=== PATIENT | female | born 1930 | race Caucasian/White ===

== ENCOUNTER 2018-03-22 07:27 | Day surgery (SDC) | payer MEDICARE ==
[~2018-03-22] VITALS: Ht 162.6 cm; Wt 73.5 kg
[~2018-03-22 07:27] MED LIST: ASCO500; ASPI325 PO; ASPI81EC PO; BACITO TP; CYAN100 PO; Coenzyme Q10100 M1 PO; DIAZ2 PO; ERGO400 PO; FLAX PO; GABA100 PO; Garlic500 MG PO; HYDACE5 PO; HYDCHL12.5; Hair, Skin & N1 EACH PO; LOSA25; METO25ER PO; METO50; MULVITMIND PO; NAPR500 PO; Red Yeast Rice600 MG PO; TUMERSAID TABL1 EACH PO; VITAMIN D32000 UNIT PO; [UNRECOGNIZED DRUG - REMARK]
== END 2018-03-22 09:34 | disposition home or self-care (01) ==
LOC: ORSCSDS 07:27
PROVIDERS: Ophthalmology
PROC: 08RK3JZ Replacement of Left Lens with Synthetic Substitute, Percutaneous Approach (ICD-10-PCS; principal; 2018-03-22 09:00)
DX: H25.12 Age-related nuclear cataract, left eye (principal); I10 Essential (primary) hypertension; K21.9 Gastro-esophageal reflux disease without esophagitis; E78.5 Hyperlipidemia, unspecified; I48.91 Unspecified atrial fibrillation; Z79.82 Long term (current) use of aspirin; Z79.899 Other long term (current) drug therapy
CPT/HCPCS: J2001; J2250; J3301; J7120; V2632

== ENCOUNTER 2018-05-05 21:22 | Observation (INO) | payer MEDICARE ==
[~2018-05-05] VITALS: Ht 162.6 cm; Wt 72.1 kg
[~2018-05-05 21:22] MED LIST changes: -METO50; +METO50 PO
[2018-05-05 23:36] LABS: BASOPHILS ABSOLUTE AUTO 0.01 K/mm3 (0.00-0.23); BASOPHILS PERCENT AUTO 0 % (0-2); EOSINOPHILS ABSOLUTE AUTO 0.64 K/mm3 (0.00-0.68); EOSINOPHILS PERCENT AUTO 6 % (0-6); Hematocrit 36.3 % (33.0-51.0); IMMATURE GRAN ABSOLUTE AUTO 0.05 K/mm3 (0.00-0.10); IMMATURE GRAN PERCENT AUTO 0 % (0-1); LYMPHOCYTES ABSOLUTE AUTO 1.11 K/mm3 (0.84-5.20); LYMPHOCYTES PERCENT AUTO 10 % (21-46); MONOCYTES ABSOLUTE AUTO 0.63 K/mm3 (0.16-1.47); MONOCYTES PERCENT AUTO 6 % (4-13); Mean Corpuscular HGB 30.3 pg (26.0-34.0); Mean Corpuscular HGB Conc 33.1 g/dL (31.5-36.5); Mean Corpuscular Volume 92 fL (80-100); Mean Platelet Volume 10.4 fL (9.1-12.4); NEUTROPHILS ABSOLUTE AUTO 9.11 K/mm3 (1.96-9.15); NEUTROPHILS PERCENT AUTO 79 % (41-73); Platelet Count 191 K/mm3 (150-400); RDW Coefficient Variation 13.2 % (11.7-14.2); RDW Standard Deviation 44.9 fL (35.1-46.3); Red Blood Cell Count 3.96 M/mm3 (3.80-5.20); White Blood Cell Count 11.55 K/mm3 (4.00-11.30)
[2018-05-05 23:54] LABS: Albumin, Blood 3.3 g/dL (3.4-5.0); Bilirubin, Total 0.3 mg/dL (0.1-1.0); Bun/Creatinine Ratio 25.2 (12.0-20.0); Calcium, Blood 9.9 mg/dL (8.5-10.1); Creatinine, Blood 2.06 mg/dL (0.40-1.00); Globulin, Blood 3.4 g/dL (2.2-4.0); Potassium, Blood 4.5 mmol/L (3.5-5.5); Total Protein, Blood 6.7 g/dL (6.4-8.2)
[2018-05-06 00:18] LABS: Source, Urine Clean Catch
[2018-05-06 00:23] LABS: Bilirubin, Urine Neg (Neg); Blood, Urine 5+ (Neg); Glucose Qualitative, Urine Neg (Neg); Ketones, Urine Neg (Neg); Leukocyte Esterase, Urine 3+ (Neg); Nitrite, Urine Neg (Neg); Protein, Urine 3+ (Neg); Specific Gravity, Urine 1.015 (1.003-1.022); Urobilinogen, Urine NORM (Normal)
[2018-05-06 00:25] LABS: Appearance, Urine Turbid (Clear); Color, Urine Yellow (P-Yellow)
[2018-05-06 00:30] LABS: Bacteria Mod /hpf; Red Blood Cells, Urine 0-2 /hpf (0-2); Squamous Epithelial Cells Rare /hpf (Few); White Blood Cells, Urine TNTC /hpf (0-5)
[2018-05-06 05:19] LABS: Hematocrit 39.4 % (33.0-51.0); Hemoglobin 12.5 g/dL (11.5-16.0); Mean Corpuscular HGB 29.6 pg (26.0-34.0); Mean Corpuscular HGB Conc 31.7 g/dL (31.5-36.5); Mean Corpuscular Volume 93 fL (80-100); Mean Platelet Volume 10.2 fL (9.1-12.4); Platelet Count 179 K/mm3 (150-400); RDW Coefficient Variation 13.3 % (11.7-14.2); RDW Standard Deviation 45.3 fL (35.1-46.3); Red Blood Cell Count 4.23 M/mm3 (3.80-5.20); White Blood Cell Count 10.67 K/mm3 (4.00-11.30)
[2018-05-06 05:48] LABS: Albumin, Blood 3.3 g/dL (3.4-5.0); Albumin/Globulin Ratio 0.9 (0.8-1.8); Bilirubin, Total 0.4 mg/dL (0.1-1.0); Bun/Creatinine Ratio 29.2 (12.0-20.0); Calcium, Blood 10.1 mg/dL (8.5-10.1); Creatinine, Blood 1.71 mg/dL (0.40-1.00); Globulin, Blood 3.6 g/dL (2.2-4.0); Potassium, Blood 4.2 mmol/L (3.5-5.5); Total Protein, Blood 6.9 g/dL (6.4-8.2)
--- NOTE | 2018-05-06 07:38 | NUR ---
SHIFT SUMMARY PT ARRIVED TO FLOOR IN NO DISTRESS. PT IS URINATING FREQUENTLY. PT IS ABLE TO USE BSC WITH HELP. PT HAS SLEPT SOME AFTER ARRIVING. PT WAS FOUND TO HAVE A ELEVATED, IRREGULAR HRT RATE. PROVIDER WAS NOTIFIED. PT DENIES ANY SOB OR CX PAIN. CALL LIGHT IN REACH.
--- NOTE | 2018-05-06 08:41 | NUR ---
NOTIFIED DR. GAMEZ PT WAS TO HAVE IV LOPRESSOR THIS AM DUE TO SHOW DOG TRAINER REPORTING PT BEING IN AFIB AT 130-[address]. [address] GAMEZ PT DID NOT GET IV LOPRESSOR DUE TO HR 79 AND BP 99/[address] GAMEZ TELE CALLED AND REPORTS PT AFIB AT 145-[address]. [address] GAMEZ PT'S BP RECHECKED AND IT IS 97/53. DR. GAMEZ REPORTS SHE IS GOING TO TRANSFER PT TO PCU AND PUT ORDERS IN. NO NEW ORDERS AT THIS TIME.
--- NOTE | 2018-05-06 10:45 | NUR ---
ASSUMED CARE OF PT FROM MEDICAL FLOOR RN. HR AFIB WITH A RATE IN THE 140'S. PT ABLE TO AMBULATE TO BED FROM WHEELCHAIR WITH 2 PERSON ASSIST. PT ORIENTED TO UNIT. BP 107/71. ORAL METOPROLOL THAT WAS HELD THIS AM GIVEN. WILL CONTINUE TO MONITOR CLOSELY.
[2018-05-06 10:51] LABS: International Normalized Ratio 1.04
--- NOTE | 2018-05-06 11:15 | NUR ---
HR CONTINUES TO SUSTAIN 130'S. DR GAMEZ NOTIFIED AND NEW ORDERS FOR AMIODERONE.
--- NOTE | 2018-05-06 13:15 | NUR ---
PT HAS PAUSE SEE RHYTHM STRIP IN CHART. AMIODERONE HELD. DR GAMEZ NOTIFIED. NEW ORDERS TO HOLD AMIODERONE UNLESS HR SUSTAINS ABOVE 130'S. HR IN THE 110'S AFIB. PT ASYMPTOMATIC DURING PAUSE. WILL CONTINUE TO MONITOR CLOSELY.
--- NOTE | 2018-05-06 15:04 | NUR ---
PT HAS TWO PAUSES WITH THE LONGEST BEING 3.38 SECONDS. SEE RHYTHM STRIPS IN CHART. PT ASYMPTOMATIC. VITAL SIGNS CHECKED AND STABLE. DR. GAMEZ NOTIFIED. AT 1446 PT CONVERTS TO SINUS RHYTHM. RATE IS IN THE 60-70s. WILL CONTINUE TO MONITOR.
--- NOTE | 2018-05-06 18:14 | NUR ---
SHIFT SUMMARY PT ALERT AND ORIENTED. VS STABLE AT THIS TIME. HR HAS BEEN IN THE 60'S SINCE CONVERTING TO NSR. BP STABLE. PT DENIES FEELING DIZZY OR SOB. PT ABLE TO TRANSFER TO BS WITH FWW AND ASSISTANCE. NO OTHER CHANGES AT THIS TIME. WILL CONTINUE TO MONITOR AND REPORT TO ONCOMING RN. CALL LIGHT IN REACH.
--- NOTE | 2018-05-07 07:26 | NUR ---
SHIFT SUMMARY PATIENT PLEASENT AND COOPERATIVE THROUGHOUT THE NIGHT. PATIENT APPEARED TO SLEEP WELL LAST NIGHT. PATIENT UP TO THE BSC SEVERAL TIMES WITH THE FWW AND ONE ASSIST. PATIENT REMAINED IN SINUS RHYTHM THROUGHOUT THE NIGHT PER [employer]AR[employer]ER OPERATOR REPORT. VITAL SIGNS CHARTED. REPORT GIVEN TO ONCOMING RN.
[2018-05-07 10:20] LABS: Anion Gap 10 mmol/L (6-16); Blood Urea Nitrogen 29 mg/dL (8-24); Bun/Creatinine Ratio 38.8 (12.0-20.0); CO2, Blood 22 mmol/L (21-32); Calcium, Blood 9.6 mg/dL (8.5-10.1); Chloride, Blood 109 mmol/L (98-108); Creatinine, Blood 0.75 mg/dL (0.40-1.00); Glomerular Filtration Rate >60 (60-); Glucose, Blood 135 mg/dL (70-99); Potassium, Blood 3.8 mmol/L (3.5-5.5); Sodium, Blood 141 mmol/L (136-145)
[2018-05-07] MEDS ORDERED: CEFD300 PO (15:35)
[2018-05-07] MEDS ORDERED: Lopressor 25 mg25 MG PO (15:39)
--- NOTE | 2018-05-07 18:40 | NUR ---
SHIFT SUMMARY PT ALERT AND ORIENTD. VS STABLE. PT ABLE TO WORK WITH PHYSICAL THERAPY TODAY. ORDERS FOR DISCHARGE HAVE BEEN PLACED. DISCHARGE INSTRUCTIONS PROVIDED TO PT AND FAMILY WITH CHANGES IN MEDICATIONS AND PLAN OF CARE WITH HOME HEALTH. NIGHT MEDICATIONS PROVIDED EARLY BECAUSE PHARMACY IS NOT OPEN UNTIL TOMORROW FOR NEW PRESCRIPTIONS TO BE PICKED UP. ALL QUESTIONS ANSWERED. IV REMOVED AND INTACT. PT GETTING DRESSED AND AWAITING FAMILY MEMBER TO PICK HER UP. WILL CONTINUE TO MONITOR AND ANSWER QUESTIONS.
== END 2018-05-07 19:16 | disposition home or self-care (01) ==
LOC: ER 21:22 → MEDS 21:23 → ER 05-06 02:41 → PCU 05-06 02:41 → MEDS 05-06 02:41 → PCU 05-06 03:24 → MEDS 05-06 03:53 → PCU 05-06 10:22
PROVIDERS: Emergency Medicine; Hospitalist; ADMIT Internal Medicine
DX: I48.91 Unspecified atrial fibrillation (principal); I95.9 Hypotension, unspecified; A41.9 Sepsis, unspecified organism; N39.0 Urinary tract infection, site not specified; Z79.899 Other long term (current) drug therapy; Z79.82 Long term (current) use of aspirin
CPT/HCPCS: 36415; 70450; 80048; 80053; 81001; 83605; 84484; 85025; 85027; 85610; 85730; 87086; 93005; 93010; 96361; 96365; 97161; 97530; 99285-25; G0378; J0696; J1650; J7030; J7040

== ENCOUNTER 2019-04-26 23:15 | Inpatient (IN) | payer OTHER ==
[~2019-04-26] VITALS: Ht 165.1 cm; Wt 79.4 kg
[~2019-04-26 23:15] MED LIST changes: -ASCO500; +ASCO500 PO; +CEFD300 PO; +Lopressor 25 mg25 MG PO; -VITAMIN D32000 UNIT PO; +Vitamin D2000 UNIT PO
[2019-04-27 00:12] LABS: BASOPHILS ABSOLUTE AUTO 0.04 K/mm3 (0.00-0.23); BASOPHILS PERCENT AUTO 0 % (0-2); EOSINOPHILS ABSOLUTE AUTO 0.01 K/mm3 (0.00-0.68); EOSINOPHILS PERCENT AUTO 0 % (0-6); Hemoglobin 12.8 g/dL (11.5-16.0); IMMATURE GRAN ABSOLUTE AUTO 0.04 K/mm3 (0.00-0.10); IMMATURE GRAN PERCENT AUTO 0 % (0-1); LYMPHOCYTES ABSOLUTE AUTO 2.43 K/mm3 (0.84-5.20); LYMPHOCYTES PERCENT AUTO 17 % (21-46); MONOCYTES ABSOLUTE AUTO 1.08 K/mm3 (0.16-1.47); MONOCYTES PERCENT AUTO 7 % (4-13); Mean Corpuscular HGB 29.8 pg (26.0-34.0); Mean Corpuscular HGB Conc 32.8 g/dL (31.5-36.5); Mean Corpuscular Volume 91 fL (80-100); NEUTROPHILS PERCENT AUTO 75 % (41-73); Platelet Count 228 K/mm3 (150-400); RDW Coefficient Variation 13.2 % (11.7-14.2); RDW Standard Deviation 43.3 fL (35.1-46.3); Red Blood Cell Count 4.29 M/mm3 (3.80-5.20)
[2019-04-27 00:33] LABS: Alanine Aminotransfer (ALT/SGP 19 U/L (12-78); Albumin, Blood 3.7 g/dL (3.4-5.0); Albumin/Globulin Ratio 0.9 (0.8-1.8); Alk Phos 66 U/L (50-136); Anion Gap 5 mmol/L (6-16); Aspartate Aminotrans (AST/SGOT 9 U/L (12-37); Bilirubin, Total 0.4 mg/dL (0.1-1.0); Blood Urea Nitrogen 23 mg/dL (8-24); Bun/Creatinine Ratio 30.5 (12.0-20.0); CO2, Blood 27 mmol/L (21-32); Calcium, Blood 10.3 mg/dL (8.5-10.1); Chloride, Blood 107 mmol/L (98-108); Creatinine, Blood 0.76 mg/dL (0.40-1.00); Glomerular Filtration Rate >60 (60-); Glucose, Blood 141 mg/dL (70-99); Potassium, Blood 3.9 mmol/L (3.5-5.5); Sodium, Blood 139 mmol/L (136-145); Total Protein, Blood 7.7 g/dL (6.4-8.2); Troponin I 0.051 ng/mL (0.000-0.040)
--- NOTE | 2019-04-27 07:58 | NUR ---
SHIFT SUMMARY PT CAME TO FLOOR AT 0600 THIS MORNING. ORIENTED TO ROOM BY BOTH CARLOS METZGER AND MYSELF. VSS. NO COMPLAINTS OF PAIN OR DISCOMFORT. AAOX4. HAND OFF TO ONCOMING RN.
--- NOTE | 2019-04-27 11:39 | NUR ---
PODIATRY CONSULT CALLED DR. ROMERO ATTEMPTING TO REQUEST PODIATRY CONSULT. LEFT MESSAGE REQUESTING CALL BACK WITH REGARDS TO DEEP WOUND CX AND PODIATRY CONSULT.
--- NOTE | 2019-04-27 14:01 | NUR ---
SPOKE WITH DR. ROMERO REGARDING PT ADVISED THERE IS A CONSULT REQUESTED. DR. ROMERO WILL MAKE CONSULT.
--- NOTE | 2019-04-27 18:03 | NUR ---
SHIFT SUMMARY PT A/O X4. MAKES NEEDS KNOWN, CALL LIGHT IN REACH. NO COMPLAINTS OF PAIN. AMBULATES WITH CANE IN ROOM WITH BATHROOM PRIVELEDGES. CONSULT WITH PODIATRY COMPLETED. AWAITING RESULTS OF WOUND CULTURE. I&D COMPLETED AT BEDSIDE. IV ABX INFUSED NO ASE OBSERVED. AFIB RESOLVED AT THIS TIME. LN TO CONTINUE TO MONITOR.
--- NOTE | 2019-04-28 02:22 | NUR ---
CALL PLACED TO DR BALLESTEROS RE FOOT CONSULT RE RIGHT GREAT TOE AND RIGHT FOOT ULCER. MESSAGE LEFT.
[2019-04-28 04:54] LABS: BASOPHILS ABSOLUTE AUTO 0.04 K/mm3 (0.00-0.23); BASOPHILS PERCENT AUTO 0 % (0-2); EOSINOPHILS ABSOLUTE AUTO 0.07 K/mm3 (0.00-0.68); EOSINOPHILS PERCENT AUTO 1 % (0-6); Hematocrit 37.1 % (33.0-51.0); Hemoglobin 12.1 g/dL (11.5-16.0); IMMATURE GRAN ABSOLUTE AUTO 0.03 K/mm3 (0.00-0.10); IMMATURE GRAN PERCENT AUTO 0 % (0-1); LYMPHOCYTES ABSOLUTE AUTO 2.29 K/mm3 (0.84-5.20); LYMPHOCYTES PERCENT AUTO 18 % (21-46); MONOCYTES ABSOLUTE AUTO 1.21 K/mm3 (0.16-1.47); MONOCYTES PERCENT AUTO 9 % (4-13); Mean Corpuscular HGB Conc 32.6 g/dL (31.5-36.5); Mean Corpuscular Volume 92 fL (80-100); Mean Platelet Volume 10.5 fL (9.1-12.4); NEUTROPHILS ABSOLUTE AUTO 9.25 K/mm3 (1.96-9.15); NEUTROPHILS PERCENT AUTO 72 % (41-73); Platelet Count 212 K/mm3 (150-400); RDW Coefficient Variation 13.1 % (11.7-14.2); RDW Standard Deviation 44.1 fL (35.1-46.3); Red Blood Cell Count 4.04 M/mm3 (3.80-5.20); White Blood Cell Count 12.89 K/mm3 (4.00-11.30)
[2019-04-28 05:08] LABS: Anion Gap 5 mmol/L (6-16); Blood Urea Nitrogen 17 mg/dL (8-24); CO2, Blood 27 mmol/L (21-32); Calcium, Blood 10.1 mg/dL (8.5-10.1); Chloride, Blood 108 mmol/L (98-108); Creatinine, Blood 0.63 mg/dL (0.40-1.00); Glomerular Filtration Rate >60 (60-); Glucose, Blood 115 mg/dL (70-99); Potassium, Blood 3.8 mmol/L (3.5-5.5); Sodium, Blood 140 mmol/L (136-145)
--- NOTE | 2019-04-28 06:23 | NUR ---
AWAKE AND UP TO THE BATHROOM A FEW TIMES THIS SHIFT, OTHERWISE HAS BEEN RESTING QUIETLY AND WITHOUT NOTED DISTRESS. RIGHT FOT REMAINS WRAPPED. MESSAGE LEFT FOR DR ROMERO FOR CONSULT RE RIGHT FOOT TOE SWELLING AND FOOT ULCER TODAY. CALL LIGHT IN REACH.
--- NOTE | 2019-04-28 16:36 | NUR ---
SHIFT SUMMARY PATIENT DENIES PAIN, NAUSEA, AND SHORTNESS OF BREATH. PATIENT UP SBA TO BAHROOM. PATIENT UP IN CHAIR FOR MEALS. DRESSING ON RIGHT GREAT TOE INTACT. DRESSING CHANGE DUE TOMORROW. BLOOD CULTURES DRAWN TODAY. PATIENT NAPPED OFF AND ON DURING SHIFT. CALL LIGHT IN REACH.
--- NOTE | 2019-04-29 03:46 | NUR ---
UP TO BATHROOM A FEW TIMEW THIS SHIFT, VOICED NO NEED FOR ASSIST AND AT TIMES REMINDED STAFF OF THIS. STILL STAFF ENCOURAGED PT TO AMBULATE WITH OBSERVATION FR SAFETY. IV ANTIBIOTICS ADMINISTERED PER MD ORDERS -SEE MAR FOR DETAILS. CURRENTLY RESTING QUIETLY. CALL LIGHT IN REACH.
[2019-04-29 05:32] LABS: Vancomycin, Random 7.3 ug/mL
--- NOTE | 2019-04-29 11:47 | NUR ---
Echocardiogram completed.
[2019-04-29] MEDS ORDERED: ASPI81CH PO (16:05)
[2019-04-29] MEDS ORDERED: XARELTO20 MG PO (16:06)
[2019-04-29] MEDS ORDERED: AMOCLA875 PO (16:06)
--- NOTE | 2019-04-29 17:04 | NUR ---
SHE DISCHARGED AT 1647 WITH HER DAUGHTER TO HOME. SHE HAS HER INSTRUCTIONS, BELONGINGS AND A FEW DRESSING ITEMS. SHE UNDERSTANDS TO LEAVE HER DRESSING IN PLACE FOR OFFICE TO CHANGE. NO COMPLAINTS. WOUND CARE DONE PRIOR TO DISCHARGE.
== END 2019-04-29 16:47 | disposition home or self-care (01) | DRG 264 ==
LOC: ER 23:15 → MEDS 23:16 → ENPENDDIS 04-29 14:24 → MEDS 04-29 16:47
PROVIDERS: Internal Medicine; Physician Assistant; ADMIT Hospitalist
PROC: 0JBQ0ZZ Excision of Right Foot Subcutaneous Tissue and Fascia, Open Approach (ICD-10-PCS; principal; 2019-04-28)
DX: I48.0 Paroxysmal atrial fibrillation (principal); L97.518 Non-pressure chronic ulcer of other part of right foot with other specified severity; G60.9 Hereditary and idiopathic neuropathy, unspecified; R79.89 Other specified abnormal findings of blood chemistry; I27.20 Pulmonary hypertension, unspecified; E78.5 Hyperlipidemia, unspecified; Z89.201 Acquired absence of right upper limb, unspecified level; Z87.891 Personal history of nicotine dependence; Z96.642 Presence of left artificial hip joint; I10 Essential (primary) hypertension; L03.031 Cellulitis of right toe; B95.61 Methicillin susceptible Staphylococcus aureus infection as the cause of diseases classified elsewhere; Z66 Do not resuscitate
CPT/HCPCS: 36415; 71046; 73630; 80048; 80053; 80202; 84484; 85025; 85651; 86140; 87040; 87070; 87075; 87077; 87147; 87186; 87205; 93005; 93010; 93306; 93922; 96365; 96366; 96372; 96376; 99285-25; A9270-GY; G0378; J0690; J1650; J3370; J7040

== ENCOUNTER 2021-09-30 21:55 | Emergency (ER) | payer OTHER ==
[~2021-09-30] VITALS: Ht 162.6 cm; Wt 69.4 kg
[~2021-09-30 21:55] MED LIST changes: +AMOCLA875 PO; +ASPI81CH PO; +XARELTO20 MG PO
[2021-09-30 23:07] LABS: Influenza A, PCR NEGATIVE (NEGATIVE); Influenza B, PCR NEGATIVE (NEGATIVE); Resp Syncytial Virus, PCR NEGATIVE (NEGATIVE)
[2021-09-30 23:13] LABS: SARS-Cov-2 (COVID-19) PCR, MMC POSITIVE (NEGATIVE)
== END 2021-10-01 00:23 | disposition home or self-care (01) ==
LOC: ER 21:55
PROVIDERS: Student in an Organized Health Care Education/Training Program
DX: U07.1 COVID-19 (principal); Z79.82 Long term (current) use of aspirin; Z79.899 Other long term (current) drug therapy; Z79.01 Long term (current) use of anticoagulants; Z91.018 Allergy to other foods; Z87.891 Personal history of nicotine dependence
CPT/HCPCS: 0241U; 99283